=== PATIENT | male | born 1955 | race Caucasian/White ===

== ENCOUNTER 2017-12-03 06:46 | Day surgery (SDC) | payer OTHER ==
[~2017-12-03] VITALS: Ht 180.3 cm; Wt 113.4 kg
[2017-12-03 07:11] VITALS: BP 144/87; PULSE 88; TEMP 97.3
[2017-12-03] MEDS ORDERED: LOTREL 10 MG-201 CAP PO (07:37)
[2017-12-03] MEDS ORDERED: TOPROL XL 50MG50 MG PO (07:37)
[2017-12-03] MEDS ORDERED: ZANTAC 150MG T150 MG PO (07:38)
[2017-12-03] MEDS ORDERED: PRILOSEC 20MG20 MG PO (07:39)
[2017-12-03] MEDS ORDERED: TYLENOL 325MG325 MG PO (07:39)
[2017-12-03] MEDS ORDERED: EPA FISH OIL1 SGL PO (07:40)
[2017-12-03] MEDS ORDERED: VITAMIN D31000 I1 PO (07:40)
[2017-12-03] MEDS ORDERED: TIROSINT100 MC1 PO (07:41)
[2017-12-03] MEDS ORDERED: ZYLOPRIM 300MG300 MG PO (07:42)
[2017-12-03] MEDS ORDERED: ASPIRIN 81M81 MG/TA2 PO (07:42)
[2017-12-03] MEDS ORDERED: LIPITOR 80MG80 MG PO (07:43)
[2017-12-03] MEDS ORDERED: PROAIR HFA0.09 MG/AC IH (07:43)
[2017-12-03 09:28] VITALS: BP 116/90; PULSE 86; TEMP 97.6
[2017-12-03 09:30] VITALS: BP 114/79; PULSE 88
[2017-12-03 09:45] VITALS: BP 116/77; PULSE 84
== END 2017-12-03 10:05 | disposition home or self-care (01) ==
LOC: SDCO 06:46
DX: Z12.11 Encounter for screening for malignant neoplasm of colon (principal); K21.0 Gastro-esophageal reflux disease with esophagitis; K64.1 Second degree hemorrhoids; T17.308A Unspecified foreign body in larynx causing other injury, initial encounter; K57.30 Diverticulosis of large intestine without perforation or abscess without bleeding; K22.2 Esophageal obstruction; E78.00 Pure hypercholesterolemia, unspecified; J45.909 Unspecified asthma, uncomplicated; Z79.82 Long term (current) use of aspirin; Z86.010 Personal history of colon polyps; Z83.79 Family history of other diseases of the digestive system
CPT/HCPCS: C1726; J2250; J3010; J7030